=== PATIENT | female | born 1970 | race Two or more races ===

== ENCOUNTER 2017-04-25 11:52 | Emergency (ER) | payer BC ==
[2017-04-25 11:57] VITALS: BP 115/76
--- NOTE | 2017-04-25 12:57 | ER Document Report ---
ED Skin Rash/Insect Bite/Abscs - General Chief Complaint: Skin Sore(s) Stated Complaint: ABSCESS/LEFT ANKLE Time Seen by Provider: 04/25/17 12:46 Notes: Patient is a 46-year-old female with history of ovarian cancer who presents to the office complaining of an insect bite to her left ankle that occurred 6 days ago. Patient states that within the first couple days it became swollen, red, and painful. She was able to get purulent material from the wound, however she has not been able to get any fluid out since Saturday. She has tried some triple antibiotic ointment with minimal relief. Her last dose of chemotherapy was one month ago. Patient states that she is in remission. Patient states that she has otherwise been feeling well without any fevers, URI, chest pain, shortness, of breath palpitations, abdominal pain, N/V/D/C, dysuria. TRAVEL OUTSIDE OF THE [place] IN LAST 30 DAYS: No - Related Data Allergies/Adverse Reactions: No Known Allergies Allergy (Verified 04/25/17 11:55) Past Medical History - Social History Smoking Status: Never Smoker Family History: Reviewed & Not Pertinent - aside from h/o ovarian cancer and chemo tx. Patient has suicidal ideation: No Patient has homicidal ideation: No Renal/ Medical History: Denies: Hx Peritoneal Dialysis Review of Systems - Review of Systems Notes: REVIEW OF SYSTEMS: CONSTITUTIONAL : Denies fever, chills, or sweats. Denies recent illness. EENT: Denies eye, ear, throat, or mouth pain or symptoms. Denies nasal or sinus congestion or discharge. Denies throat, tongue, or mouth swelling or difficulty swallowing. CARDIOVASCULAR: Denies chest pain. Denies palpitations or racing or irregular heart beat. Denies ankle edema. RESPIRATORY: Denies cough, cold, or chest congestion. Denies shortness of breath, difficulty breathing, or wheezing. GASTROINTESTINAL: Denies abdominal pain or distention. Denies nausea, vomiting , or diarrhea. Denies blood in vomitus, stools, or per rectum. Denies black, tarry stools. Denies constipation. GENITOURINARY: Denies difficulty urinating, painful urination, burning, frequency, blood in urine, or discharge. MUSCULOSKELETAL: Denies back or neck pain or stiffness. Denies joint pain or swelling. SKIN: as above. HEMATOLOGIC : Denies easy bruising or bleeding. LYMPHATIC: Denies swollen, enlarged glands. NEUROLOGICAL: Denies numbness/tingling ALL OTHER SYSTEMS REVIEWED AND NEGATIVE. Dictation was performed using [employer] voice recognition software Physical Exam - Vital signs Vitals: Temp Pulse Resp BP Pulse Ox 98 F 76 16 115/76 97 04/25/17 11:55 04/25/17 11:55 04/25/17 11:55 04/25/17 11:55 04/25/17 11:55 Notes: PHYSICAL EXAMINATION: GENERAL: Well-appearing, well-nourished and in no acute distress. HEAD: Atraumatic, normocephalic. LUNGS: Breath sounds clear to auscultation bilaterally and equal. No wheezes rales or rhonchi. HEART: Regular rate and rhythm without murmurs, rubs, gallops. ABDOMEN: Soft, nontender, nondistended abdomen. No guarding, no rebound. No masses appreciated. Normal bowel sounds present. No CVA tenderness bilaterally. No inguinal lymphadenopathy. Musculoskeletal: FROM to passive/active. Strength 5+/5. Extremities: No cyanosis, clubbing, or edema b/l. Peripheral pulses 2+. Capillary refill less than 3 seconds. NEUROLOGICAL: Cranial nerves grossly intact. Normal speech, normal gait. Normal sensory, motor exams PSYCH: Normal mood, normal affect. SKIN: + erythema, swelling to the left distolateral lower leg approx 1.5cmx1.5cm with central scab. + tenderness and induration. No pustular pocket of soft spot of fluid able to be palpated so no I&D able to be performed. No streaking or prox. lymphadenopathy. No other deformity noted. Course - Re-evaluation Re-evalutation: 04/25/17 13:06 04/25/17 13:11 Patient is a 46-year-old female who presents with an abscess to the left lateral lower leg. Vitals are stable. PE is otherwise unremarkable. There is no pustular material present for an I&D. We will treat conservatively for now with Bactrim twice a day for 10 days. I would like her to use Epsom salts soaks , triple antibiotic ointment, tylenol/ibuprofen as needed for discomfort. Because of her history of cancer and treatment with chemo 1 month ago, I would like her to have strict follow-up with her PCM on Saturday. Patient is to return with any worsening pain, swelling, fever, purulent discharge. Patient is in agreement with the plan. - Vital Signs Vital signs: Temp Pulse Resp BP Pulse Ox 98 F 76 16 115/76 97 04/25/17 11:55 04/25/17 11:55 04/25/17 11:55 04/25/17 11:55 04/25/17 11:55 Discharge - Discharge Clinical Impression: Abscess Condition: Stable Disposition: HOME, SELF-CARE Instructions: Trimethoprim-Sulfa ([facility]), Abscess ([facility]) Additional Instructions: Abscess You have an abscess (boil). This a pus-forming infection, usually due to staph. Some boils may be left to drain on their own, but most require lancing. From the time the tender lump first appears, it may be three or four days before the abscess is ready to myla. Local heat and rest help at this stage of treatment. An antibiotic may prevent spread of the infection. The wound will heal with surprisingly little scar. Depending on the size and location of an abscess, healing can take one to four weeks. You may shower and wash the area around the incision site two or three times a day. If you develop fever, chilling, worsening pain, or increasing swelling in the area, call the doctor or return immediately. Prescriptions: Sulfamethoxazole/Trimethoprim [Bactrim Ds Tablet] 1 each PO BID #20 tablet
== END 2017-04-25 13:10 | disposition home or self-care (01) ==
LOC: ER 11:52
DX: L02.416 Cutaneous abscess of left lower limb (principal); Z85.43 Personal history of malignant neoplasm of ovary; Z79.899 Other long term (current) drug therapy
CPT/HCPCS: 99283

== ENCOUNTER 2017-10-30 13:58 | Emergency (ER) | payer BC ==
--- NOTE | 2017-10-30 14:47 | ER Document Report ---
ED Medical Screen (RME) - General Chief Complaint: Cough Stated Complaint: COUGH,CONGESTION Time Seen by Provider: 10/30/17 14:42 Notes: 47-year-old female patient reports cough since last week. Last night she noted some blood in it. She states she has some substernal burning discomfort when she takes a deep breath and cough now. She also has painful area in her low back buttock region for the past 3 weeks. I have greeted and performed a rapid initial assessment of this patient. A comprehensive ED assessment and evaluation of the patient, analysis of test results and completion of the medical decision making process will be conducted by additional ED providers. TRAVEL OUTSIDE OF THE [place] IN LAST 30 DAYS: No - Related Data Allergies/Adverse Reactions: No Known Allergies Allergy (Verified 04/25/17 11:55) Past Medical History - Social History Chew tobacco use (# tins/day): No Frequency of alcohol use: None Drug Abuse: None Renal/ Medical History: Denies: Hx Peritoneal Dialysis Physical Exam - Vital signs Vitals: Temp Pulse Resp BP Pulse Ox 97.8 F 80 18 112/75 98 10/30/17 14:06 10/30/17 14:06 10/30/17 14:06 10/30/17 14:06 10/30/17 14:06 Course - Vital Signs Vital signs: Temp Pulse Resp BP Pulse Ox 97.8 F 80 18 112/75 98 10/30/17 14:06 10/30/17 14:06 10/30/17 14:06 10/30/17 14:06 10/30/17 14:06
--- NOTE | 2017-10-30 15:19 | ER Document Report ---
HPI - HPI Patient complains to provider of: cough, congestion Onset: Last week Onset/Duration: Persistent Quality of pain: No pain Pain Level: Denies Context: Patient presents complaining of cough and congestion for the past 6 days. Patient denies any fever, nausea, vomiting or diarrhea. Patient does report multiple sick contacts at home and work. Patient states that she had some blood flecked sputum with her cough today which prompted her to come in. Associated Symptoms: Nonproductive cough, Rhinnorhea, Sore throat. denies: Diarrhea, Fever Exacerbated by: Denies Relieved by: Denies Similar symptoms previously: No Recently seen / treated by doctor: No - ROS ROS below otherwise negative: Yes Systems Reviewed and Negative: Yes All other systems reviewed and negative - CONSTITUTIONAL Constitutional: DENIES: Fever, Chills - EENT EENT: REPORTS: Nasal Drainage-Clear, Congestion - RESPIRATORY Respiratory: REPORTS: Coughing - GASTROINTESTINAL Gastrointestinal: DENIES: Abdominal Pain, Nausea, Patient vomiting, Diarrhea - URINARY Urinary: DENIES: Dysuria, Urgency, Frequency - REPRODUCTIVE LMP: hyst - MUSCULOSKELETAL Musculoskeletal: DENIES: Back Pain - DERM Skin Color: Normal Skin Problems: None Past Medical History - General Information source: Patient - Social History Smoking Status: Never Smoker Chew tobacco use (# tins/day): No Frequency of alcohol use: None Drug Abuse: None Occupation: Foodservice Family History: Reviewed & Not Pertinent - aside from h/o ovarian cancer and chemo tx. Patient has suicidal ideation: No Patient has homicidal ideation: No - Past Medical History Cardiac Medical History: Reports: Hx Hypercholesterolemia Renal/ Medical History: Denies: Hx Peritoneal Dialysis Malignancy Medical History: Reports: Other - Uterine cancer Past Surgical History: Reports: Hx Hysterectomy, Other - Chest tube, Port-A-Cath Vertical Provider Document - CONSTITUTIONAL Agree With Documented VS: Yes Exam Limitations: No Limitations General Appearance: WD/WN, No Apparent Distress - INFECTION CONTROL TRAVEL OUTSIDE OF THE [place] IN LAST 30 DAYS: No - HEENT HEENT: Atraumatic, Normal ENT Exam, Normocephalic. negative: Pharyngeal Erythema, Tympanic Membrane Red, Tympanic Membrane Bulging - NECK Neck: Normal Inspection, Supple. negative: Lymphadenopathy-Left, Lymphadenopathy-Right - RESPIRATORY Respiratory: Breath Sounds Normal, No Respiratory Distress, Chest Non-Tender O2 Sat by Pulse Oximetry: 98 - CARDIOVASCULAR Cardiovascular: Regular Rate, Regular Rhythm, No Murmur - BACK Back: Normal Inspection - MUSCULOSKELETAL/EXTREMETIES Musculoskeletal/Extremeties: STEFFANIE WHYTE - NEURO Level of Consciousness: Awake, Alert, Appropriate Motor/Sensory: No Motor Deficit - DERM Integumentary: Warm, Dry, No Rash Course - Re-evaluation Re-evalutation: 10/30/17 16:02 Respirations unlabored, no fever. No concern for pneumonia. Discussed worsening signs or symptoms that patient should return mainly for. Patient verbalized understanding and agrees with plan of care. - Vital Signs Vital signs: Temp Pulse Resp BP Pulse Ox 97.8 F 80 18 112/75 98 10/30/17 14:06 10/30/17 14:06 10/30/17 14:06 10/30/17 14:06 10/30/17 14:06 - Diagnostic Test Radiology reviewed: Reports reviewed Discharge - Discharge Clinical Impression: Upper respiratory infection Qualifiers: URI type: unspecified URI Qualified Code(s): J06.9 - Acute upper respiratory infection, unspecified Condition: Stable Disposition: HOME, SELF-CARE Instructions: Acetaminophen, Upper Respiratory Illness ([facility]) Additional Instructions: Return immediately for any new or worsening symptoms Followup with your primary care provider, call tomorrow to make a followup appointment Prescriptions: Benzonatate [Tessalon Perle 100 mg Capsule] 100 mg PO Q8HP PRN #20 cap PRN Reason: Guaifenesin/Pseudoephedrne HCl [Mucinex D ER Tablet] 1 each PO Q12 PRN #12 tab.er.12h PRN Reason: Forms: Return to Work Referrals: JEFF VASQUEZ MD [Primary Care Provider] - Follow up in 3-5 days
--- NOTE | 2017-10-30 15:36 | RADIOLOGY REPORT (SQ) ---
EXAM DESCRIPTION: CHEST PA/LAT COMPLETED DATE/TIME: 10/30/2017 3:26 pm REASON FOR STUDY: cough, hemoptysis COMPARISON: None. EXAM PARAMETERS: NUMBER OF VIEWS: two views TECHNIQUE: Digital Frontal and Lateral radiographic views of the chest acquired. RADIATION DOSE: NA LIMITATIONS: none FINDINGS: LUNGS AND PLEURA: No opacities, masses or pneumothorax. No pleural effusion. MEDIASTINUM AND HILAR STRUCTURES: No masses or contour abnormalities. HEART AND VASCULAR STRUCTURES: Heart normal size. No evidence for failure. BONES: No acute findings. HARDWARE: None in the chest. OTHER: No other significant finding. IMPRESSION: NO SIGNIFICANT RADIOGRAPHIC FINDING IN THE CHEST. TECHNICAL DOCUMENTATION: JOB ID: [id number] [employer]- All Rights Reserved
[2017-10-30 16:12] VITALS: BP 122/81
== END 2017-10-30 16:11 | disposition home or self-care (01) ==
LOC: ER 13:58
DX: J02.9 Acute pharyngitis, unspecified (principal); R04.2 Hemoptysis; J34.89 Other specified disorders of nose and nasal sinuses; Z85.42 Personal history of malignant neoplasm of other parts of uterus
CPT/HCPCS: 71020; 99283

== ENCOUNTER → 2019-07-22 | Outpatient (CLI) | payer BC ==
[~2019-07-22] MED LIST: REGADENOSON INJ 0.4 MG/5 ML DISP.SYRIN IV ONE
--- NOTE | 2019-07-22 21:33 | DRAGON STRESS TEST REPORT ---
Intravenous Lexiscan Cardiolite stress test using single photon emmision computerized tomography. The patient was referred for exercise treadmill stress Cardiolite study. Due to unsteady gait of the patient, and inability to exercise on the treadmill the procedure was converted to IV Lexiscan Cardiolite stress test.. Date of procedure: 07/22/2019. Ordering Provider: Dr. Bonifacio Treadwell. Patient's status: Out Patient. Indication: Chest pain on EKG.. Coronary risk factors: Age, and hyperlipidemia. Resting EKG: Sinus Rhythm. T inversion in the inferior leads and also T inversion in leads V5 V6. Stress EKG: No changes of ischemia. No chest pain or discomfort, and there were no arrhythmias seen. Reason for termination: Protocol. Conclusions: Normal EKG and hemodynamic response to IV Lexiscan. Nuclear data: At rest the patient was given 10.93 millicuries of technetium 99m sestamibi injected intravenously. As per protocol rest non gated SPECT images were obtained. Subsequently the patient was given intravenous Lexiscan at a dose of 0.4 mg in 5 mL intravenously, followed by flush with normal saline. Subsequently the stress dose of 32.6 millicuries of technetium 99m sestamibi was injected intravenously. As per protocol stress gated images were obtained. Nuclear interpretation: Review of images showed that all segments of the myocardium had normal perfusion at rest, and normal perfusion post stress with IV Lexiscan. All segments of the myocardium had normal motion, contraction, and thickening by gated study. T. I D. ratio was normal at 1.05. There is no transient ischemic dilatation of the left ventricle. Computer read rest, and stress left ventricular ejection fraction were 65 %, and 63 %, respectively. Conclusion: 1. There is no scintigraphic evidence of Lexiscan induced myocardial ischemia. 2. There is no scintigraphic evidence of myocardial infarction/scar. Recommendations: Aggressive risk factor modification, and treating the underlying co- morbidities. MTDD
== END ==
LOC: RAD 07:07
PROVIDERS: ATTEND Physician Assistant
DX: R94.31 Abnormal electrocardiogram [ECG] [EKG] (principal)
CPT/HCPCS: 93017; 78452; A9500; J2785; Q9969